=== PATIENT | male | born 1960 | race Caucasian/White ===

== ENCOUNTER 2017-04-01 19:43 | Emergency (ER) | payer OTHER ==
[2017-04-01] MEDS ORDERED: KETOROLAC TROMETHAMINE 30 MG/ML SOL IV ONE (20:07)
[2017-04-01] MEDS ORDERED: ONDANSETRON HCL 4 MG/2 ML SOL IV ONE (20:07)
[2017-04-01 20:17] LABS: APPEARANCE,URINE Clear; BILIRUBIN,URINE NEGATIVE (NEGATIVE); COLOR,URINE Yellow; GLUCOSE, URINE (UA) NEGATIVE (NEGATIVE); KETONES,URINE NEGATIVE (NEGATIVE); LEUKOCYTE ESTERASE ,URINE NEGATIVE (NEGATIVE); NITRATE,URINE NEGATIVE (NEGATIVE); OCCULT BLOOD,URINE NEGATIVE (NEG-TRACE); PH,URINE 7.5; UROBILINOGEN,URINE 0.2 (0.2-1.0 EU)
[2017-04-01] MEDS ORDERED: MORPHINE SULFATE 10 MG/ML SOL IV ONE (20:20)
[2017-04-01] MEDS ORDERED: MORPHINE SULFATE 10 MG/ML SOL ONE (20:22)
[2017-04-01] MEDS ORDERED: KETOROLAC TROMETHAMINE 30 MG/ML SOL ONE (20:22)
[2017-04-01 20:32] LABS: BASOPHILS % (AUTO) 2 % (0-3); EOSINOPHILS % (AUTO) 0 % (0-9); HEMATOCRIT 39 % (39-53); MEAN CORPUSCULAR HGB CONC 32.9 gm/dl (32.0-36.0); MEAN CORPUSCULAR VOLUME 86 fL (80-100); MONOCYTES % (AUTO) 6.7 % (0-12); NEUTROPHILS % (AUTO) 87.4 % (37-80)
[2017-04-01] MEDS: SODIUM CHLORIDE 0.9% 1000ML 1,000 ML IV SCH ×2 (20:35→21:16)
[2017-04-01 20:39] LABS: CALCIUM 8.7 mg/dl (8.5-10.1)
[2017-04-01] MEDS ORDERED: TAMSULOSIN HYDROCHLORIDE 0.4 MG CAP PO SCH (20:45)
[2017-04-01 20:46] VITALS: RESP 20; TEMP 98.7
[2017-04-01] MEDS ORDERED: TAMSULOSIN HYDROCHLORIDE 0.4 MG CAP ONE (21:00)
[2017-04-01 21:19] VITALS: BP 105/57; PULSE 76; O2SAT 92
[2017-04-01] MEDS ORDERED: APAP/HYDROCODONE 325/5 TAB PO ONE (21:20)
[2017-04-01] MEDS ORDERED: APAP/HYDROCODONE 325/5 TAB ONE (21:25)
[2017-04-01 22:03] LABS: RBC,URINE 0-3 (0-3AV/HPF)
[2017-04-01 22:04] LABS: WBC,URINE NEGATIVE (0-5AV/HPF)
== END 2017-04-01 21:42 | disposition home or self-care (01) | DRG 694 ==
LOC: ED 19:43
DX: N20.1 Calculus of ureter (principal)
CPT/HCPCS: 74176; 80048; 81001; 85025; 99284; J1885; J2270

== ENCOUNTER 2017-04-04 19:14 | Emergency (ER) | payer OTHER ==
[2017-04-04] MEDS ORDERED: MORPHINE SULFATE 10 MG/ML SOL IV ONE (19:34)
[2017-04-04] MEDS ORDERED: ONDANSETRON HCL 4 MG/2 ML SOL ONE (19:35)
[2017-04-04] MEDS ORDERED: ONDANSETRON HCL 4 MG/2 ML SOL IV ONE (19:35)
[2017-04-04] MEDS ORDERED: MORPHINE SULFATE 10 MG/ML SOL ONE (19:35)
[2017-04-04] MEDS ORDERED: SODIUM CHLORIDE 0.9% FLUSH 10 ML SOL IV PRN (19:46)
[2017-04-04 19:52] LABS: BASOPHILS % (AUTO) 1 % (0-3); EOSINOPHILS % (AUTO) 0 % (0-9); HEMATOCRIT 39 % (39-53); MEAN CORPUSCULAR HGB CONC 33.7 gm/dl (32.0-36.0); MEAN CORPUSCULAR VOLUME 85 fL (80-100); MONOCYTES % (AUTO) 12.6 % (0-12); NEUTROPHILS % (AUTO) 65.9 % (37-80)
[2017-04-04 20:07] LABS: ALBUMIN 2.9 gm/dl (3.4-5.0); CALCIUM 8.3 mg/dl (8.5-10.1); POTASSIUM 3.6 mMol/L (3.5-5.1)
[2017-04-04 20:18] VITALS: RESP 18
[2017-04-04] MEDS ORDERED: KETOROLAC TROMETHAMINE 30 MG/ML SOL IV ONE (20:23)
[2017-04-04] MEDS ORDERED: KETOROLAC TROMETHAMINE 30 MG/ML SOL ONE (20:25)
[2017-04-04 20:35] VITALS: TEMP 97.9
[2017-04-04 20:59] LABS: APPEARANCE,URINE Clear; BILIRUBIN,URINE 1+ (NEGATIVE); COLOR,URINE Yellow; GLUCOSE, URINE (UA) NEGATIVE (NEGATIVE); KETONES,URINE NEGATIVE (NEGATIVE); LEUKOCYTE ESTERASE ,URINE NEGATIVE (NEGATIVE); NITRATE,URINE NEGATIVE (NEGATIVE); OCCULT BLOOD,URINE 1+ (NEG-TRACE); PH,URINE 5.5
[2017-04-04 21:09] LABS: ICTOTEST,URINE NEGATIVE (NEGATIVE)
[2017-04-04 21:35] VITALS: BP 110/65; PULSE 53; O2SAT 93
== END 2017-04-04 21:31 | disposition home or self-care (01) | DRG 694 ==
LOC: ED 19:14
DX: N13.2 Hydronephrosis with renal and ureteral calculous obstruction (principal)
CPT/HCPCS: 36415; 74176; 80053; 81001; 82150; 85025; 96374; 96375; 99284; 99285; J1885; J2270; J2405